=== PATIENT | female | born 1995 | race Hispanic/Latino ===

== ENCOUNTER 2017-07-25 12:08 | Day surgery (SDC) | payer OTHER ==
[2017-07-25 12:38] VITALS: BMI 29.1
[2017-07-25 12:39] VITALS: BP 110/72; TEMP 98.6
[2017-07-25] MEDS ORDERED: Ondansetron HCl/PF 4 MG/2 ML Vial IVP SCH (13:30)
[2017-07-25] MEDS: Lactated Ringer's 2,000 ML IV SCH ×2 (13:31→14:03)
[2017-07-25] MEDS ORDERED: Acetaminophen 500 MG TAB PO SCH (14:00)
[2017-07-25] MEDS ORDERED: Morphine 4 MG/ML Carpuject SLOW IVP SCH (14:00)
[2017-07-25 14:22] LABS: Bilirubin Negative (Negative); Blood, Urine Negative (Negative); Clarity CLEAR (Clear); Glucose, Urine (Dipstick) Negative (Negative); Leukocyte Negative (Negative); Nitrite Negative (Negative); Protein, Urine (Dipstick) Negative (Neg-Trace); Specific Gravity, Urine 1.011 (1.002-1.036); Urobilinogen 0.2 mg/dL (0.2-1.0)
[2017-07-25 14:28] LABS: Bacteria/HPF None Seen HPF (None Seen); Hyaline Casts/LPF 0-3 HYALINE CAST LPF (0-3 Hyaline); RBC/HPF 0-3 HPF (0-3); Squamous Epithelial 0-3 HPF (0-3); WBC/HPF None Seen HPF (0-3)
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
[2017-07-27 01:13] LABS: Chlamydia by PCR Not Detected (NotDetected); GC by PCR Not Detected (NotDetected)
== END 2017-07-25 15:45 | disposition home or self-care (01) ==
LOC: L&D/OP 12:08
PROVIDERS: ATTEND Obstetrics & Gynecology
DX: O99.89 Other specified diseases and conditions complicating pregnancy, childbirth and the puerperium (principal); R10.9 Unspecified abdominal pain; M54.9 Dorsalgia, unspecified; Z88.8 Allergy status to other drugs, medicaments and biological substances; Z3A.24 24 weeks gestation of pregnancy; Z98.890 Other specified postprocedural states
CPT/HCPCS: 81001; 87480; 87491; 87510; 87591; 87660; 96360; 96361; 96375; 99285; J2405

== ENCOUNTER 2017-10-23 02:36 | Inpatient (IN) | payer MEDICAID, OTHER ==
--- NOTE | 2017-11-09 20:06 | PDOC.LDHP ---
Labor and Delivery H&P Chief complaint: scheduled induction HPI: 22 yo @ 39w4d by LMP c/w 8 week CRL who presents for elective IOL. Pt has h /o PPH with first delivery, otherwise anetpartum course benign. Current gestational age (weeks): 39 Due date: 11/12/17 Dating criteria: last menstrual period Grav: 2 Para: 1 OB History Details: Term x1, PPH Current complications: none Abnormal US findings: No Past Medical History: Denies Current medications: pre- vitamins Previous surgical history: none (upper extremity surgery) Allergies/Adverse Reactions: Allergies Allergy/AdvReac Type Severity Reaction Status Date / Time aspirin Allergy Verified 11/10/17 13:57 Social history: none - Physical Exam Vital signs reviewed and normal: yes General: NAD Heart: RRR Lungs: nonlabored breathing Abdomen: gravid Extremeties: no edema FHT: category 1 (120s, mod adriana, +accels, no decels) [place] contractions every: q3-4 min - Vaginal Exam cm dilated: 4 (per RN ) Effacement: 50% Station: -2 - OB Labs Blood type: B RH: positive Antibody Screen: negative HIV: negative RPR: negative HEPSAg: negative 1 hour GCT: positive 3 hour GTT: negative GBS: negative Urine drug screen: not done Rubella: immune Additional Labs: Coagulation studies wnl SSQ negative - Assessment 39w4d IUP Elective IOL H/O PPH - Plan Plan: admit to L&D, labor augmentation if indicated, informed consent obtained, anesthesia consult for pain management -: Start pitocin Uterotonics available at delivery
[2017-11-10] MEDS: Lactated Ringer's 1,000 ML IV SCH ×3 (14:00→18:28)
[2017-11-10 14:02] VITALS: BMI 38.2
[2017-11-10] MEDS ORDERED: Promethazine HCl 25 MG/ML VIAL IM PRN ×2 (14:02→18:34)
[2017-11-10] MEDS ORDERED: Ondansetron HCl/PF 4 MG/2 ML Vial IVP PRN ×2 (14:02→18:34)
[2017-11-10] MEDS ORDERED: Methylergonovine 0.2 MG/ML VIAL IM PRN (14:02)
[2017-11-10] MEDS ORDERED: Carboprost 250 MCG/ML AMP IM PRN (14:02)
[2017-11-10] MEDS ORDERED: Acetaminophen 500 MG TAB PO PRN (14:02)
[2017-11-10] MEDS ORDERED: HYDROcodone/Acetaminophen 5/325 mg Tablet PO PRN (14:02)
[2017-11-10] MEDS ORDERED: Diphenoxylate HCl/Atropine Tablet PO PRN (14:02)
[2017-11-10] MEDS ORDERED: Misoprostol 200 MCG TAB PR PRN (14:02)
[2017-11-10] MEDS ORDERED: LR 500 ML/Oxytocin 10 units 500 ML IV SCH (14:02)
[2017-11-10] MEDS ORDERED: Lidocaine 1% (PF) 30 ML VIAL SC PRN (14:02)
[2017-11-10] MEDS ORDERED: LR / Pitocin 40 units/1000 ml 1,000 ML IV PRN (14:02)
[2017-11-10 14:15] LABS: Hemoglobin 12.8 g/dL (12.0-16.0); Mean Corpuscular HGB CONC 34.5 g/dL (32.0-36.0); Mean Corpuscular Hemoglobin 30.9 pg (27.0-31.0); Mean Corpuscular Volume 89.7 fl (81.0-99.0); Mean Platelet Volume 7.7 fL (7.4-10.4); Platelet Count 227 thou/uL (130-400); RBC Distribution Width 14.2 % (11.5-14.5); Red Blood Cell (RBC) Count 4.15 mill/uL (4.20-5.40); White Blood Cell (WBC) Count 9.2 thou/uL (4.8-10.8)
[2017-11-10 14:57] LABS: HBSAg Index 0.27 S/CO (0-0.99); HIV (1/2) Antibody/Antigen Non-Reactive (NonReactive); HIV 1/2 INDEX 0.08 S/CO (<1.00); Hep B Surf Ag Non-Reactive S/CO (NonReactive); Syphilis Antibody Nonreactive (Nonreactive); Syphilis Antibody Index 0.03 S/CO (<1.00 Non-Reactive)
[2017-11-10] MEDS ORDERED: DISCONTINUE ALL PREVIOUS NARCOTICS FS SCH (15:00)
[2017-11-10] MEDS ORDERED: Bupivacaine 0.5% 20 ML, fentaNYL Citrate/PF 400 MCG in Sodium Chloride 0.9% 72 ML EPIDURAL SCH (15:00)
--- NOTE | 2017-11-10 18:15 | PDOC.LDPN ---
Labor & Delivery Progress Note - Subjective Subjective: comfortable - Objective Vital signs reviewed and normal: yes General: NAD Uterine fundus: non tender Dilation: 5 Effacement: 50% Station: -2 FHT: category 1 (120s, mod adriana, +accels, no decels ) [place] contractions every: q2-3 AROM: clear fluid IUPC placed: yes - Assessment (1) 39 weeks gestation of Code(s): Z3A.39 - 39 WEEKS GESTATION OF Current Visit: Yes Status : Acute (2) Elective induction of labor planned Code(s): YTC2388 - Current Visit: Yes Status: Acute (3) History of hemorrhage Code(s): Z86.2 - PRSNL HISTORY OF DIS OF THE BLD/BLD-FORM ORG/IMMUN MECHNSM Current Visit: Yes Status: Acute Plan: continue plan of care, labor augmentation, pitocin for augmentation, other (uterotonics available at delivery )
[2017-11-10] MEDS ORDERED: diphenhydrAMINE 50 MG/ML VIAL IVP PRN (18:34)
[2017-11-10] MEDS ORDERED: Naloxone HCl 0.4 mg/ml Vial IVP PRN ×2 (18:34)
[2017-11-10] MEDS ORDERED: Eucerin (Mineral Oil/Petrolatum,White) 30 gm Jar TOP PRN (18:34)
[2017-11-10] MEDS ORDERED: ePHEDrine/0.9% NaCl/PF SYRINGE 50 mg/10 ml SLOW IVP PRN (18:34)
[2017-11-10] MEDS ORDERED: Lactated Ringer's 500 ML IV PRN (18:34)
[2017-11-10] MEDS ORDERED: Communication Order-Pharmacy FS SCH (18:45)
[2017-11-10] MEDS ORDERED: Fentanyl 4mcg/Marcaine 0.1% Cassette 100 ML EPIDURAL SCH (18:45)
[2017-11-10] MEDS: Acetaminophen 325 MG TAB PO PRN (20:06)
[2017-11-11] MEDS: Lactated Ringer's 1,000 ML IV SCH ×2 (01:31→03:22)
[2017-11-11] MEDS ORDERED: Ondansetron ODT 8 MG TAB SL PRN (01:55)
[2017-11-11] MEDS ORDERED: CEFAZOLIN 1 GM in Syringe 10 ML IVPB SCH (02:00)
[2017-11-11] MEDS ORDERED: Ibuprofen 800 MG TAB PO PRN (03:21)
[2017-11-11] MEDS ORDERED: HYDROcodone/Acetaminophen 5/325 mg Tablet PO PRN (03:22)
[2017-11-11] MEDS ORDERED: CEFAZOLIN 1 GM in Sodium Chloride 0.9% 100 ML IVPB SCH ×2 (06:00→14:00)
[2017-11-11 06:44] LABS: Hemoglobin 10.8 g/dL (12.0-16.0); Mean Corpuscular HGB CONC 33.7 g/dL (32.0-36.0); Mean Corpuscular Hemoglobin 30.1 pg (27.0-31.0); Mean Corpuscular Volume 89.5 fl (81.0-99.0); Mean Platelet Volume 7.6 fL (7.4-10.4); Platelet Count 191 thou/uL (130-400); RBC Distribution Width 13.9 % (11.5-14.5); Red Blood Cell (RBC) Count 3.59 mill/uL (4.20-5.40); White Blood Cell (WBC) Count 18.6 thou/uL (4.8-10.8)
[2017-11-11] MEDS ORDERED: LR / Pitocin 40 units/1000 ml 1,000 ML IV SCH (07:08)
[2017-11-11] MEDS ORDERED: Ondansetron HCl/PF 4 MG/2 ML Vial IVP PRN (07:08)
[2017-11-11] MEDS ORDERED: Acetaminophen/Codeine 30-300mg Tablet PO PRN (07:08)
[2017-11-11] MEDS ORDERED: diphenhydrAMINE 25 MG CAP PO PRN (07:08)
[2017-11-11] MEDS ORDERED: Bisacodyl 10 MG SUPP PR PRN (07:08)
[2017-11-11] MEDS ORDERED: Adacel (T-DAP) 0.5 ML VIAL IM ONE (07:08)
[2017-11-11] MEDS ORDERED: Milk Of Magnesia 30 ML UDCUP PO PRN (07:08)
[2017-11-11] MEDS ORDERED: Benzocaine/Menthol 20-0.5% 60 ML CAN TOP PRN (07:08)
[2017-11-11] MEDS ORDERED: Lanolin Ointment 7 GM TUBE TOP PRN (07:08)
[2017-11-11] MEDS: Acetaminophen/Codeine 30-300mg Tablet PO PRN (08:19)
[2017-11-11] MEDS: Prenatal Vitamin 1 TAB PO SCH (09:49)
[2017-11-11] MEDS: Methylergonovine 0.2 MG TAB PO SCH ×3 (09:49→22:48)
[2017-11-11] MEDS: Docusate Calcium (SURFAK) 240 MG CAP PO SCH ×2 (09:49→21:41)
[2017-11-11] MEDS: Ferrous Sulfate 325 MG TAB PO SCH ×2 (09:51→15:18)
--- NOTE | 2017-11-11 10:33 | DN ---
DATE OF ENCOUNTER: 11/11/2017 Patient delivered a female on 11/11/2017 at 01:14 hours by term spontaneous vaginal delivery c omplicated by hemorrhage. Estimated blood loss is about 1500 mL, resolved with vigorous b imanual massage, 0.2 mg of Methergine IM x1, 800 mcg of Cytotec [place] x1 and 40 units of Pitocin. Of no te, the placenta felt unusually adherent to the uterine wall; however, it was delivered with some man ual manipulation and believed to be completely removed. There were no lacerations. Dr. Bailon is t he delivering physician. Estimated blood loss is 1500 mL. Mother and baby have been stable in the i mmediate . She remained stable here in labor and delivery with following 6 hours with no e vidence of continued bleeding. The patient is being now transferred to for routine care o n a p.o. Methergine for the next 24 hours.
[2017-11-11] MEDS ORDERED: Bupivacaine 0.5% 20 ML, fentaNYL Citrate/PF 400 MCG in Sodium Chloride 0.9% 72 ML EPIDURAL SCH (11:30)
[2017-11-11] MEDS: Ibuprofen 800 MG TAB PO SCH ×2 (12:08→21:42)
[2017-11-11] MEDS ORDERED: CEFAZOLIN 1 GM, Syringe 2.5 ML in Sterile Water 7.5 ML SLOW IVP SCH (18:00)
[2017-11-11] MEDS: Acetaminophen 325 MG TAB PO PRN (18:18)
[2017-11-12] MEDS: Acetaminophen/Codeine 30-300mg Tablet PO PRN ×2 (02:51→16:39)
[2017-11-12 05:21] LABS: Hemoglobin 8.9 g/dL (12.0-16.0); Mean Corpuscular HGB CONC 33.7 g/dL (32.0-36.0); Mean Corpuscular Hemoglobin 30.7 pg (27.0-31.0); Mean Corpuscular Volume 91.1 fl (81.0-99.0); Mean Platelet Volume 7.2 fL (7.4-10.4); Platelet Count 152 thou/uL (130-400); Red Blood Cell (RBC) Count 2.91 mill/uL (4.20-5.40); White Blood Cell (WBC) Count 8.7 thou/uL (4.8-10.8)
[2017-11-12] MEDS: Ibuprofen 800 MG TAB PO SCH ×2 (05:59→13:09)
--- NOTE | 2017-11-12 06:36 | PDOC.PP ---
Post Progress Note Post Day #: PPD#1 Subjective: Resting comfortably. Denies dizziness or headache. PO intake tolerated: yes Ambulation: yes Vital Signs (12 hours) Temp Pulse Resp 11/12/17 00:00 98.9 F 91 20 11/11/17 20:00 98.9 F 91 20 Weight Weight 104.326 kg - Physical Examination General: NAD Respiratory: non-labored breathing Abdominal: no distention Fundus firm & at: below umbilicus Extremities: negative homans (B) Neurological: no gross focal deficits Psychiatric: normal affect Result Diagrams: 11/12/17 05:07 Additional Labs: Post Labs Blood Type B POSITIVE 11/10/17 14:00 Hep Bs Antigen Non-Reactive S/CO (NonReactive) 11/10/17 14:00 - Assessment/Plan Doing well. Routine PP care.
[2017-11-12 08:41] VITALS: BP 102/53; TEMP 99
[2017-11-12] MEDS: Ferrous Sulfate 325 MG TAB PO SCH ×3 (09:24→16:40)
[2017-11-12] MEDS: Prenatal Vitamin 1 TAB PO SCH (09:34)
[2017-11-12] MEDS: Docusate Calcium (SURFAK) 240 MG CAP PO SCH (09:34)
--- NOTE | 2017-11-12 18:52 | DIS ---
DATE OF ADMISSION: 11/09/2017 DATE OF DISCHARGE: 11/12/2017 ADMITTING DIAGNOSIS: Induction of labor at term. DISCHARGE DIAGNOSIS: hemorrhage. PROCEDURE: Term spontaneous vaginal delivery. CONSULTATIONS: None. HOSPITAL COURSE: The patient is a 22-year-old female who presented to labor and delivery for a sched uled induction of labor at 39 weeks and 4 days. The course was uncomplicated. Delivery was complica patricia by a hemorrhage, resolved with Methergine, Cytotec and Pitocin and vigorous bimanual m assage. Of note, the placenta was quite adherent to the endometrial cavity, but was successfully rem lynnette with some manual manipulation. Her course was uncomplicated. Hemoglobin dropped ult imately from 12.8-8.9. Platelets, her counts were 152,000. The patient now is day #1 will be 36 hours this afternoon. She has expressed interest in discharge today. She reports today that she is tolerating p.o., voiding on her own, having decreased lochia and good pain control . PHYSICAL EXAMINATION: VITAL SIGNS: This morning, temperature is 99.0, blood pressure is 102/53, pulse of 75, respiratory r ate of 20. GENERAL: She appears to be in no acute distress. She is alert and oriented, cooperative and pleasan t to interact with. HEENT: Normocephalic, atraumatic. ABDOMEN: Fundus is firm. EXTREMITIES: Nontender, nonedematous. ASSESSMENT AND PLAN: Baby will be reevaluated this afternoon about 36 hours and patient can be disch arged home if baby is being discharged. She will be discharged with ibuprofen p.r.n. for pain contro l. She has been given instructions to take iron and vitamin C for the next 6 months to help built he r stores. She has also been given instructions to follow up with her primary OB, Dr. Lyons in [place] for a routine check and sooner if she experiences fever, increasing pain or bleeding.
== END 2017-11-12 18:05 | disposition home or self-care (01) | DRG 767 ==
LOC: L&D 11-10 12:01 → 3SW 11-11 08:58
PROVIDERS: ADMIT Obstetrics & Gynecology; ATTEND Obstetrics & Gynecology
PROC: 3E033VJ Introduction of Other Hormone into Peripheral Vein, Percutaneous Approach (ICD-10-PCS; 2017-11-10)
PROC: 10907ZC Drainage of Amniotic Fluid, Therapeutic from Products of Conception, Via Natural or Artificial Opening (ICD-10-PCS; 2017-11-10)
PROC: 10E0XZZ Delivery of Products of Conception, External Approach (ICD-10-PCS; principal; 2017-11-11)
PROC: 10D17Z9 Manual Extraction of Products of Conception, Retained, Via Natural or Artificial Opening (ICD-10-PCS; 2017-11-11)
PROC: 3E0P7VZ Introduction of Hormone into Female Reproductive, Via Natural or Artificial Opening (ICD-10-PCS; 2017-11-11)
DX: O72.2 Delayed and secondary postpartum hemorrhage (principal); Z37.0 Single live birth; Z3A.39 39 weeks gestation of pregnancy
CPT/HCPCS: 36415; 51702; 85027; 86780; 86850; 86870; 86900; 86901; 86905; 86922; 87340; 87389; 88307; A4216; J0690; J2210; J3010; J3490; J7050; J7120

== ENCOUNTER 2017-11-06 01:38 | Day surgery (SDC) | payer OTHER ==
[2017-11-06 02:11] VITALS: BP 124/76; TEMP 99.4; BMI 38.2
[2017-11-06] MEDS ORDERED: Ondansetron ODT 8 MG TAB SL PRN (02:28)
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
== END 2017-11-06 03:18 | disposition home or self-care (01) ==
LOC: L&D/OP 01:38
PROVIDERS: ATTEND Obstetrics & Gynecology
DX: O47.1 False labor at or after 37 completed weeks of gestation (principal); Z3A.39 39 weeks gestation of pregnancy; Z79.899 Other long term (current) drug therapy; Z88.6 Allergy status to analgesic agent
CPT/HCPCS: 99283